=== PATIENT | female | born 1940 | race Caucasian/White ===

== ENCOUNTER → 2016-07-09 | Outpatient (CLI) | payer OTHER | END | disposition home or self-care (01) | LOC: PCVCIMAG 12:51 | PROVIDERS: ATTEND Internal Medicine Cardiovascular Disease | DX: I65.23 Occlusion and stenosis of bilateral carotid arteries (principal); E78.5 Hyperlipidemia, unspecified; R94.31 Abnormal electrocardiogram [ECG] [EKG]; R03.0 Elevated blood-pressure reading, without diagnosis of hypertension | CPT/HCPCS: 80061; 93005; 93880; G0463 ==

== ENCOUNTER → 2017-04-05 | Outpatient (CLI) | payer OTHER | END | disposition home or self-care (01) | LOC: PCVCCLINIC 14:01 | DX: I10 Essential (primary) hypertension (principal); I35.0 Nonrheumatic aortic (valve) stenosis; E78.00 Pure hypercholesterolemia, unspecified; E11.9 Type 2 diabetes mellitus without complications; Z79.82 Long term (current) use of aspirin; Z79.899 Other long term (current) drug therapy; Z79.84 Long term (current) use of oral hypoglycemic drugs | CPT/HCPCS: 80061; 93005; G0463 ==

== ENCOUNTER → 2017-11-23 | Outpatient (CLI) | payer OTHER ==
--- NOTE | 2017-11-23 15:42 | PCVCIMAG ---
EXAM: AORTOILIAC DUPLEX INDICATION: Prominent aorta to palpation. FINDINGS: AORTA: Suprarenal aorta measures maximum diameter of 2.8 cm. There is not a fusiform infrarenal aortic aneurysm. The infrarenal aorta measures maximum diameter of 2.2 x 2.6 cm. No aortic stenosis. RIGHT COMMON ILIAC ARTERY: Maximum diameter is 1.4 cm. No significant stenosis. RIGHT EXTERNAL ILIAC ARTERY: No significant stenosis. LEFT COMMON ILIAC ARTERY: Maximum diameter is 1.4 cm. No significant stenosis. LEFT EXTERNAL ILIAC ARTERY: No significant stenosis. IMPRESSION: Mild ectasia abdominal aorta measuring maximum diameter of 2.6 cm. LOC:[id number]
--- NOTE | 2017-11-23 19:05 | PCVCIMAG ---
APPROVED REPORT Study performed: 11/23/2017 12:43:50 EXAM: Comprehensive 2D, Doppler, and color-flow Echocardiogram Patient Location: Echo lab Status: routine BSA: 1.89 HR: 66 bpmBP: 156/84 mmHg Rhythm: NSR Other Information Study Quality: Adequate Indications Diabetes Hypertension/HDD aortic stenosis 2D Dimensions LVEF(%): 70.44 (>50%) IVSd: 10.40 (7-11mm)LVOT Diam: 20.04 (18-24mm) LVDd: 39.04 mm PWd: 8.97 (7-11mm)Ascending Ao: 33.71 (22-36mm) LVDs: 23.69 (25-40mm) Left Atrium: 35.11 (27-40mm) Aortic Root: 32.82 mm LV Single Plane 4CH: 69.31 % LV Single Plane 2CH: 65.49 %[place] LVEF: 67.40 % Biplane EF: 68.1 % Volumes Left Atrial Volume (Systole) Single Plane 4CH: 86.70 mLSingle Plane 2CH: 80.62 mL LA ESV Index: 45.00 mL/m2 Aortic Valve AoV Peak Yan.: 4.06 m/s AO Peak Gr.: 66.08 mmHgLVOT Max P.39 mmHg AO Mean Gr.: 27.67 mmHgLVOT Mean P.59 mmHg AO V2 Mean: 2.35 m/sLVOT Max V: 1.05 m/s AO V2 VTI: 98.13 cmLVOT Mean V: 0.76 m/s OMAR (VTI): 0.91 [id number] VTI: 28.40 cm OMAR Vmax: 0.81 cm2 AI Vmax: 4.33 m/sSV (LVOT): 89.50 mL AI [place]: 2.92 m/s2 AI PHT: 432.79 ms Mitral Valve E/A Ratio: 0.7 MV Decel. Time: 317.37 ms MV E Max Yan.: 0.53 m/s MV A Yan.: 0.71 m/s IVRT: 131.49 ms Pulmonary Valve PV Peak Yan.: 1.13 m/sPV Peak Gr.: 5.13 mmHg Pulmonary Vein P Vein S: 0.41 m/sP Vein A: 0.33 m/s P Vein D: 0.53 m/sP Vein A Dur.: 110.7 msec P Vein S/D Ratio: 0.77 Tricuspid Valve TR Peak Yan.: 2.68 m/s TR Peak Gr.: 28.76 mmHg Left Ventricle The left ventricle is normal size. There is normal LV segmental wall motion. There is normal left ventricular wall thickness. Left ventricular systolic function is normal. The left ventricular ejection fraction is within the normal range. LVEF is 65%. Grade I - abnormal relaxation pattern. Right Ventricle The right ventricle is normal size. The right ventricular systolic function is normal. Atria Left atrium is moderately dilated. Right atrium is moderately dilated. Aortic Valve The aortic valve is moderately to severely calcified. Mild to moderate aortic regurgitation. There is moderate valvular aortic stenosis. Calculated aortic valve area is .8 cm2 with maximum pressure gradient of 66 mmHg and mean pressure gradient of 28 mmHg. Mitral Valve The mitral valve is normal in structure. Mild mitral regurgitation. No evidence of mitral valve stenosis. Tricuspid Valve The tricuspid valve is normal in structure. Mild tricuspid regurgitation with PAP of 36 mmHg. Pulmonic Valve The pulmonary valve is normal in structure. Trace pulmonic regurgitation. Great Vessels The aortic root is normal in size. IVC is normal in size and collapses with >50% inspiration Pericardium There is no pericardial effusion. There is no pleural effusion. <Conclusion> The left ventricle is normal size. LVEF is 65%. Grade I - abnormal relaxation pattern. The right ventricle is normal size. Left atrium is moderately dilated. Right atrium is moderately dilated. The aortic valve is moderately to severely calcified. Mild to moderate aortic regurgitation. There is moderate valvular aortic stenosis. Calculated aortic valve area is .8 cm2 with maximum pressure gradient of 66 mmHg and mean pressure gradient of 28 mmHg. Mild mitral regurgitation. Mild tricuspid regurgitation with PAP of 36 mmHg. The aortic root is normal in size. There is no pericardial effusion.
== END | disposition home or self-care (01) ==
LOC: PCVCIMAG 13:03
PROVIDERS: ATTEND Internal Medicine Cardiovascular Disease
DX: I08.3 Combined rheumatic disorders of mitral, aortic and tricuspid valves (principal); E11.9 Type 2 diabetes mellitus without complications; I10 Essential (primary) hypertension; I77.811 Abdominal aortic ectasia
CPT/HCPCS: 93306; 93978

== ENCOUNTER → 2018-07-27 | Outpatient (CLI) | payer OTHER | END | disposition home or self-care (01) | LOC: PCVCCLINIC 15:00 | PROVIDERS: ATTEND Internal Medicine Cardiovascular Disease | DX: I35.0 Nonrheumatic aortic (valve) stenosis (principal); E78.00 Pure hypercholesterolemia, unspecified; E11.9 Type 2 diabetes mellitus without complications; I10 Essential (primary) hypertension; Z79.82 Long term (current) use of aspirin; Z79.899 Other long term (current) drug therapy | CPT/HCPCS: 36415; 80061; 93005; G0463 ==

== ENCOUNTER → 2019-01-18 | Outpatient (CLI) | payer OTHER ==
--- NOTE | 2019-01-18 10:52 | PCVCIMAG ---
APPROVED REPORT Study performed: 01/18/2019 09:20:38 EXAM: Comprehensive 2D, Doppler, and color-flow Echocardiogram Patient Location: Echo lab [facility] BSA: 1.83 HR: 64 bpmBP: 146/84 mmHg Rhythm: NSR Other Information Study Quality: Good Risk Factors: Cardiac Risk Factors: HTN, Hyperlipidemia, DM Indications Aortic Valve Disease Diabetes Hypertension/HDD Aortic Stenosis 2D Dimensions IVSd: 13.64 (7-11mm)LVOT Diam: 20.00 (18-24mm) LVDd: 37.78 mm PWd: 12.09 (7-11mm)Ascending Ao: 34.29 (22-36mm) LVDs: 26.49 (25-40mm) Left Atrium: 44.66 (27-40mm) Aortic Root: 29.37 mm LV Single Plane 4CH: 58.36 % LV Single Plane 2CH: 58.30 % Biplane EF: 58.7 % Volumes Left Atrial Volume (Systole) Single Plane 4CH: 78.67 mLSingle Plane 2CH: 83.42 mL LA ESV Index: 44.00 mL/m2 Aortic Valve AoV Peak Yan.: 4.06 m/s AO Peak Gr.: 65.82 mmHgLVOT Max P.43 mmHg AO Mean Gr.: 37.09 mmHgLVOT Mean P.56 mmHg AO V2 Mean: 2.93 m/sLVOT Max V: 1.05 m/s AO V2 VTI: 99.45 cmLVOT Mean V: 0.77 m/s OMAR (VTI): 0.82 [id number] VTI: 25.97 cm OMAR Vmax: 0.82 cm2 AI Vmax: 4.13 m/sSV (LVOT): 81.64 mL AI [place]: 2.27 m/s2 AI PHT: 528.02 ms Mitral Valve E/A Ratio: 0.7 MV Decel. Time: 264.89 ms MV E Max Yan.: 0.75 m/s MV A Yan.: 1.15 m/s IVRT: 79.58 ms TDI E/Lateral E': 15.00E/Medial E': 25.00 Medial E' Yan.: 0.03 m/s Lateral E' Yan.: 0.05 m/s Pulmonary Valve PV Peak Yan.: 0.94 m/sPV Peak Gr.: 3.51 mmHg Pulmonary Vein P Vein S: 0.67 m/sP Vein A: 0.35 m/s P Vein D: 0.31 m/sP Vein A Dur.: 103.8 msec P Vein S/D Ratio: 2.16 Tricuspid Valve TR Peak Yan.: 2.53 m/sRAP Estimate: 7.00 mmHg TR Peak Gr.: 25.68 mmHg PA Pressure: 33.00 mmHg Left Ventricle The left ventricle is normal size. There is normal LV segmental wall motion. Mild concentric left ventricular hypertrophy. Left ventricular systolic function is normal. The left ventricular ejection fraction is within the normal range. LVEF is 60%. Mild diastolic dysfunction is present (impaired relaxation pattern). Right Ventricle The right ventricle is normal size. The right ventricular systolic function is normal. Atria Left atrium is moderately dilated. Right atrium is dilated. Aortic Valve Aortic valve is moderately to severely calcified. Mild to moderate aortic regurgitation. The aortic valve maximum pressure gradient is 66 mmHg and the mean pressure gradient is 37 mmHg. The calculated aortic valve area is 0.8 cm2. Moderate aortic stenosis. Mitral Valve Mild mitral annular calcification. Mild mitral regurgitation. No evidence of mitral valve stenosis. Tricuspid Valve The tricuspid valve is normal in structure. Mild tricuspid regurgitation. Pulmonary artery pressure is 33 mmHg. Pulmonic Valve The pulmonary valve is normal in structure. There is no pulmonic valvular regurgitation. Great Vessels The aortic root is normal in size. The ascending aorta is normal in size. IVC is normal in size and collapses >50% with inspiration. Pericardium There is no pericardial effusion. <Conclusion> The left ventricle is normal size. LVEF is 60%. Mild diastolic dysfunction is present (impaired relaxation pattern). The right ventricle is normal size. Left atrium is moderately dilated. Right atrium is dilated. Aortic valve is moderately to severely calcified. Mild to moderate aortic regurgitation. The aortic valve maximum pressure gradient is 66 mmHg and the mean pressure gradient is 37 mmHg. The calculated aortic valve area is 0.8 cm2. Moderate aortic stenosis. Mild mitral annular calcification. Mild mitral regurgitation. Mild tricuspid regurgitation. Pulmonary artery pressure is 33 mmHg. The aortic root is normal in size. There is no pericardial effusion.
== END | disposition home or self-care (01) ==
LOC: PCVCIMAG 08:44
PROVIDERS: ATTEND Internal Medicine Cardiovascular Disease
DX: I08.3 Combined rheumatic disorders of mitral, aortic and tricuspid valves (principal); I10 Essential (primary) hypertension; E78.00 Pure hypercholesterolemia, unspecified; R94.31 Abnormal electrocardiogram [ECG] [EKG]; E78.5 Hyperlipidemia, unspecified; Z79.82 Long term (current) use of aspirin; Z79.899 Other long term (current) drug therapy
CPT/HCPCS: 93306